=== PATIENT | male | born 1940 | race Caucasian/White ===

== ENCOUNTER 2019-09-28 07:57 | Day surgery (SDC) | payer MEDICARE, BC ==
[~2019-09-28 07:57] MED LIST: Lactated Ringers 1,000 ML IV SCH; Sodium Chloride 0.9% 10 ML Syringe FLUSH PRN
[2019-09-28] MEDS ORDERED: Propofol 200 MG/20 ML SDV ONE ×2 (08:27→09:11)
--- NOTE | 2019-09-28 09:14 | PCM.HPR ---
H & P Addendum review - H & P Addendum Review Date of Original H & P: 09/21/19 Date Reviewed: 09/28/19 Time Reviewed: 09:13 Patient was Examined: No Changes
--- NOTE | 2019-09-28 09:39 | PCM.OPNOTE ---
- General Post-Op/Procedure Note Operative Procedure(s): Colonoscopy Findings: Sig tics Pre Op Diagnosis: Hx Polyps Post-Op Diagnosis: Same Anesthesia Technique: MAC Primary Surgeon: Francisco Isidro Anesthesia Provider: Alysia Sanchez Complications: None Condition: Good
[2019-09-28 11:23] VITALS: BP 112/62; PULSE 60
--- NOTE | 2019-09-29 10:44 | OR ---
Date of Procedure: 09/28/2019 PREOPERATIVE DIAGNOSIS: History of colon polyps. POSTOPERATIVE DIAGNOSIS: Sigmoid diverticulosis. PROCEDURE: Colonoscopy. ANESTHESIA: IV sedation. PROCEDURE: Patient was brought to the procedure room where he was placed on his left side and IV sedation administered. Digital rectal exam was performed, which was normal. Colonoscope was inserted and advanced to the level of the cecum without difficulty. Cecal position was confirmed by identifying the appendiceal lumen and ileocecal valve. Prep was good and surfaces were well visualized. Upon withdrawing the scope, the ascending, transverse, and descending colon were normal in appearance. Sigmoid colon had multiple diverticula present. Rectum was normal and retroflexion was normal. Air was removed and the scope withdrawn. Patient tolerated the procedure well and returned to recovery in stable condition. No further colon screenings are necessary due to patient's age. ALISON CLEANING MD /[id number]
== END 2019-09-28 11:05 | disposition home or self-care (01) ==
LOC: LL.SDS 07:57
PROVIDERS: ATTEND Surgery
DX: Z12.11 Encounter for screening for malignant neoplasm of colon (principal); K57.30 Diverticulosis of large intestine without perforation or abscess without bleeding; E78.2 Mixed hyperlipidemia; M19.90 Unspecified osteoarthritis, unspecified site; Z87.891 Personal history of nicotine dependence; Z86.010 Personal history of colon polyps; Z79.82 Long term (current) use of aspirin; Z79.899 Other long term (current) drug therapy
CPT/HCPCS: 00812; G0121; J2704; J7120

== ENCOUNTER 2022-03-26 16:14 | Emergency (ER) | payer MEDICARE, BC ==
[2022-03-26 16:23] VITALS: BP 163/92
[2022-03-26] MEDS ORDERED: Diazepam 5 MG Tab PO ONE (17:03)
[2022-03-26] MEDS ORDERED: Morphine 2 MG/ML SYRINGE IM ONE (17:04)
[2022-03-26] MEDS ORDERED: methylPREDNISolone Acetate 40 MG/ML SDV IM ONE (17:05)
[2022-03-26] MEDS ORDERED: Ondansetron 4 MG Tab.DIS PO ONE (17:05)
[2022-03-26 17:31] LABS: ANION GAP 8.6 meq/L (7-15)
[2022-03-26] MEDS ORDERED: Ketorolac 15 MG/ML SDV IM ONE (17:35)
== END 2022-03-26 19:30 | disposition home or self-care (01) ==
LOC: LL.ED 16:14
DX: M54.50 Low back pain, unspecified (principal); E78.00 Pure hypercholesterolemia, unspecified; Z88.8 Allergy status to other drugs, medicaments and biological substances; Z79.899 Other long term (current) drug therapy; Z79.82 Long term (current) use of aspirin
CPT/HCPCS: 36415; 80048; 85025; 96372; 99283; 99284; J1030; J1885

== ENCOUNTER 2025-05-26 17:45 | Emergency (ER) | payer MEDICARE, OTHER ==
[2025-05-26 18:05] VITALS: PULSE 62
[2025-05-26 18:24] LABS: BASOPHILS ABSOLUTE AUTO 0.04 K/uL (0.00-0.20); BASOPHILS PERCENT AUTO 0.7 % (0.0-2.0); EOSINOPHILS ABSOLUTE AUTO 0.28 K/uL (0.00-0.50); EOSINOPHILS PERCENT AUTO 4.9 % (0.0-5.0); IMMATURE GRAN ABSOLUTE AUTO 0.01 10^3/uL (0.00-0.04); IMMATURE GRAN PERCENT AUTO 0.2 % (0.0-0.4); LYMPHOCYTES ABSOLUTE AUTO 1.19 K/uL (0.50-3.50); LYMPHOCYTES PERCENT AUTO 20.7 % (10.0-50.0); MONOCYTES ABSOLUTE AUTO 0.47 K/uL (0.00-1.00); MONOCYTES PERCENT AUTO 8.2 % (2.0-14.0); NEUTROPHILS ABSOLUTE AUTO 3.75 K/uL (1.40-7.00); NEUTROPHILS PERCENT AUTO 65.3 % (45.0-80.0); PLATELET COUNT,PLT 165 K/uL (150-350); RED BLOOD CELL COUNT 4.17 M/uL (4.33-5.41); RED CELL DISTRIBUTION WIDTH 12.5 % (11.2-14.1); WHITE BLOOD CELL COUNT,WBC 5.7 K/uL (4.0-10.2)
[2025-05-26 18:40] LABS: BLOOD UREA NITROGEN,BUN 9.0 mg/dL (7-18); CARBON DIOXIDE,CO2 30.1 mmol/L (21.0-32.0); CHLORIDE,CL 98.0 mmol/L (98-107); CREATININE 0.82 mg/dL (0.51-1.17); EST CRCL DRUG DOSING (CG) 68.87 mL/min; GLUCOSE RANDOM 93.0 mg/dL (70-99); POTASSIUM,K 4.4 mmol/L (3.5-5.1); SODIUM,NA 135.0 mmol/L (136-145)
[2025-05-26 18:41] LABS: ESTIMATED GFR 86.0 mL/min (>=60)
[2025-05-26] MEDS: Orphenadrine 100 MG Tab.ER PO ONE (19:05)
[2025-05-26] MEDS: Take Home: traMADol 50 MG, 4 Tab Pack PO ONE (19:06)
[2025-05-26] MEDS: Take Home: Orphenadrine 100 MG Tab.ER, 4 Tab Pack PO ONE (19:06)
[2025-05-26] MEDS: Take Home: predniSONE 20 MG, 4 Tab Pack PO ONE (19:06)
[2025-05-26 19:30] VITALS: BP 148/94
== END 2025-05-26 19:20 | disposition home or self-care (01) ==
LOC: LL.ED 17:45
DX: M54.31 Sciatica, right side (principal); Z87.891 Personal history of nicotine dependence; Z88.8 Allergy status to other drugs, medicaments and biological substances; Z79.899 Other long term (current) drug therapy
CPT/HCPCS: 36415; 72100; 73502; 80048; 85025; 99283; A9270; J7512